=== PATIENT | male | born 1985 | race African-American/Black ===

== ENCOUNTER 2019-01-30 15:31 | Emergency (ER) | payer SELFPAY ==
[~2019-01-30] VITALS: Ht 175.3 cm; Wt 72.6 kg
--- NOTE | 2019-01-30 15:46 | NUR ---
ED Nurse Note: pt walked in c/o panic attack today and progressively worsen, pt states he takes ativan 1mg tid but hasn't taking it for 24 hr. pt denies SI/HI/VH/AH, reports he feels anxious. noted hand tremors and pt unable to sit still and stuttering. will cont monitor.
[2019-01-30 15:51] VITALS: BP 147/78
--- NOTE | 2019-01-30 15:51 | NUR ---
HANDOFF: report given to SHAMA Mercer and endorsed care.
--- NOTE | 2019-01-30 15:56 | Emergency Room Report ---
History of Present Illness General Chief Complaint: Behavioral Complaint Source: Patient Present Illness HPI Patient presents with anxiety reaction. He's been off his Ativan for 3 days. Someone gave him Xanax 0.25 mg at noon today. He still feels short of breath and shaky. He was drinking alcohol last night. He says he takes Adderall also but hasn't had a for several days. He's not taking his Ativan because he ran out. He denies any fevers chills productive cough wheezing headache suicidal or homicidal ideation rashes. He does feels shortness of breath and some weakness. He's been able to eat. No fevers, chills, chest pain, vomiting, diarrhea, dysuria, abdominal pain, visual changes, headache. Allergies: Coded Allergies: ACETAMINOPHEN (Verified Allergy, Unknown, 01/30/19) Uncoded Allergies: SHELLFISH (Allergy, Unknown, 01/30/19) Patient History Past Medical History: see triage record Social History: Reports: alcohol use; Denies: smoking Social History Narrative from home Reviewed Nursing Documentation: PMH: Agreed; PSxH: Agreed Nursing Documentation-PMH Past Medical History: No History, Except For History Of Psychiatric Problem: Yes - anxiety Review of Systems All Other Systems: negative except mentioned in HPI Physical Exam Vital Signs Date Time Temp Pulse Resp B/P (MAP) Pulse Ox O2 Delivery O2 Flow Rate FiO2 01/30/19 15:43 98.4 107 20 100 Room Air Sp02 EP Interpretation: reviewed, normal General Appearance: well appearing, no apparent distress, non-toxic Head: normocephalic, atraumatic Eyes: bilateral eye normal inspection, bilateral eye PERRL, bilateral eye EOMI ENT: hearing grossly normal, normal voice, moist mucus membranes Neck: full range of motion, supple Respiratory: chest non-tender, lungs clear, normal breath sounds, no respiratory distress, speaking full sentences Cardiovascular #1: regular rate, rhythm, no edema Cardiovascular #2: 2+ radial (R) Gastrointestinal: normal inspection, non tender, scaphoid Genitourinary: no CVA tenderness Musculoskeletal: back normal, digits/nails normal, normal range of motion, no calf tenderness Neurologic: alert, oriented x3, motor strength/tone normal, DTRs symmetric, sensory intact, normal gait, other - Some shakiness Psychiatric: no suicidal/homicidal ideation, anxious Skin: normal inspection, no rash Medical Decision Making Diagnostic Impression: Primary Impression: Anxiety attack ER Course Patient presents with anxiety dyspnea and weakness after being off of medication for 3 days. Differential includes acute hyperventilation, alcohol withdrawal, anxiety attack amongst others. He's requesting a dose of Ativan at this time. I offered to give it to him IM and he states he prefers taking it orally. He denies suicidal or homicidal ideation at this time. No laboratory, EKG or imaging indicated at this time. Still feels anxious. Requests another ativan. Improved. Discussed the need for not taking extra doses of his Ativan and discussing this with his doctor. Also discussed the perils of drinking alcohol with Ativan as well as the problem of alcohol withdrawal. Suggested to the patient that he might consider going to an Alcoholics Anonymous meeting. Patient stable for outpatient observation and treatment. Last Vital Signs Date Time Temp Pulse Resp B/P (MAP) Pulse Ox O2 Delivery O2 Flow Rate FiO2 01/30/19 18:16 98.5 98 18 145/80 99 Room Air Status: improved Disposition: HOME, SELF-CARE Condition: Improved Scripts Lorazepam* (ATIVAN*) 1 Mg Tablet 1 MG ORAL THREE TIMES A DAY, #8 TAB Prov: Juan Castillo MD 01/30/19 Juan Castillo MD January 30, 2019 15:56
[2019-01-30] MEDS ORDERED: LORazepam 1mg tab ORAL ONE ×2 (16:00→17:15)
[2019-01-30] MEDS ORDERED: ATIVAN1 MG ORAL (18:11)
[2019-01-30 18:16] VITALS: BP 145/80
--- NOTE | 2019-01-30 18:16 | NUR ---
ER DISCHARGE NOTE: Patient is cleared to be discharged per ERMD, pt is aox4, on room air, with stable vital signs. pt was given dc and prescription instructions, pt was able to verbalize understanding, pt id band removed. pt is able to ambulate with steady gait. pt took all belongings.
== END 2019-01-30 18:16 | disposition home or self-care (01) ==
LOC: EMR 17:15
DX: F41.9 Anxiety disorder, unspecified (principal); R06.02 Shortness of breath; Z88.6 Allergy status to analgesic agent; Z91.013 Allergy to seafood; R53.1 Weakness
CPT/HCPCS: 99282